=== PATIENT | female | born 1965 | race Caucasian/White ===

== ENCOUNTER 2019-09-01 21:54 | Emergency (ER) | payer BC, SELFPAY ==
[~2019-09-01] VITALS: Ht 157.5 cm; Wt 89.8 kg
[2019-09-01 22:30] VITALS: BP 146/64
--- NOTE | 2019-09-01 23:52 | NUR ---
COVID SWAB COLLECTED AND SENT TO LAB.
[2019-09-01 23:53] VITALS: BP 146/64
--- NOTE | 2019-09-01 23:53 | NUR ---
Patient discharged with v/s stable. Written and verbal after care instructions given and explained. Patient verbalized understanding. Ambulatory with steady gait. All questions addressed prior to discharge. Advised to follow up with PMD.
== END 2019-09-01 23:53 | disposition home or self-care (01) ==
LOC: EEVIPCON 21:54 → MED 21:54
DX: Z20.828 Contact with and (suspected) exposure to other viral communicable diseases (principal); E11.9 Type 2 diabetes mellitus without complications; I10 Essential (primary) hypertension; E07.9 Disorder of thyroid, unspecified
CPT/HCPCS: 99283; U0003